=== PATIENT | male | born 1975 | race Caucasian/White ===

== ENCOUNTER 2016-08-20 09:54 | Emergency (ER) | payer MEDICARE, MEDICAID ==
[~2016-08-20 09:54] MED LIST: /GLIM4TA OR; /TAMS4CA OR; ALLO300T OR; AMBI10TA OR; BABY81CH OR; CIPR500T4 OR; COLA100C2 OR; DETR4CAP OR; FERR325T OR; FERR325T3 PO; FLOM5CAP PO; GLUC500T OR; HYDR25TA6 OR; INSULANT SC; JANU100T PO; JANU25TA PO; JANUVIA OR; KEFL500C7 PO; LISI10TA4 OR; LISI10TA4 PO; METF850T PO; OMEP20TA PO; OMEP20TA7 OR; PERC5TAB6 PO; POTASSIUM CITRATE1 PO; SENO8.6T10 PO; SODIUM BICARBONATE PO; TYLENOL #3 OR; VICO5TAB OR; ZOFR20TA PO
[2016-08-20 11:04] LABS: BASO # 0.1 K/mm3 (0.0-0.2); BASO % 0.5 % (0.0-1.0); EOS # 0.2 K/mm3 (0.0-0.50); EOS % 1.8 % (0.0-3.0); LARGE UNSTAINED CELL # 0.3 K/mm3 (0.0-0.4); LARGE UNSTAINED CELL % 2.8 % (0.0-4.0); LYMPH # 2.5 K/mm3 (1.5-4.5); MEAN CORPUSCULAR HEMOGLOBIN 26.7 pg (27.0-33.0); MEAN CORPUSCULAR HGB CONC 32.3 g/dl (32.0-36.5); MEAN CORPUSCULAR VOLUME 82.7 fl (80.0-96.0); MONO # 0.6 K/mm3 (0.0-0.8); NEUTROPHILS # 7.6 K/mm3 (1.8-7.7); NEUTROPHILS % 67.9 % (36.0-66.0); PLATELET COUNT, AUTOMATED 293 k/mm3 (150-450); RED CELL DISTRIBUTION WIDTH 14.7 % (11.5-14.5); WHITE BLOOD COUNT 11.2 K/mm3 (4.0-10.0)
[2016-08-20 11:13] LABS: ANION GAP 9 MEQ/L (8-16); BLOOD UREA NITROGEN 18 MG/DL (7-18); CALCIUM LEVEL 9.2 MG/DL (8.5-10.1); CARBON DIOXIDE LEVEL 29 MEQ/L (21-32); CHLORIDE LEVEL 102 MEQ/L (98-107); CREATININE FOR GFR 1.17 MG/DL (0.70-1.30); GLOMERULAR FILTRATION RATE > 60.0 (>60); GLUCOSE, FASTING 146 MG/DL (70-105); POTASSIUM SERUM 4.4 MEQ/L (3.5-5.1); SODIUM LEVEL 140 MEQ/L (136-145); URIC ACID 3.5 MG/DL (3.5-7.2)
--- NOTE | 2016-08-20 12:05 | EDDOCDS ---
Physician Documentation [facility] Name: Joe Prince Age: 41 yrs Sex: Male : 1975 Arrival Date: 08/20/2016 Time: 09:54 Bed PR Private MD: Jovany Gilbert E. Disposition: 08/20/16 11:48 Discharged to Home/Self Care. Impression: Cellulitis of right lower limb - anterior knee. - Condition is Stable. - Discharge Instructions: Cellulitis. - Prescriptions for Keflex 500 mg Oral Capsule - take 1 capsule by ORAL route every 6 hours for 10 days; 40 capsule. indomethacin 50 mg Oral Capsule - take 1 capsule by ORAL route 3 times per day with food; 15 capsule. - Medication Reconciliation, Local Pharmacy Hours form. - Follow up: Jovany Gilbert; When: 4 - 5 days; Reason: Recheck today's complaints. Follow up: Emergency Department; When: As needed; Reason: Fever > 102F, Worsening of conditions. - Problem is new. - Symptoms are unchanged. Historical: - Allergies: no known allergies; - Home Meds: 1. aspirin 81 mg Oral tab 1 tab once daily (Last dose: 08/20/2016 09:00) 2. Claritin 10 mg Oral tab once daily (Last dose: 08/20/2016 09:00) 3. ferrous sulfate 325 mg (65 mg iron) Oral TbEC daily (Last dose: 08/20/2016 09:00) 4. Lantus 100 unit/mL Sub-Q soln nightly 30 units (Last dose: 08/19/2016 23:00) 5. lisinopril 10 mg Oral tab 1 tab once daily (Last dose: 08/20/2016 09:00) 6. metformin 850 mg Oral tab 1 tab 2 times per day (Last dose: 08/20/2016 09:00) 7. Prilosec 20 mg Oral cpDR 1 cap 2 times per day (Last dose: 08/20/2016 09:00) 8. Vitamin B-12 1,000 mcg Oral tab daily (Last dose: 08/20/2016 09:00) 9. acetaminophen 650 mg Oral TbER 2 tabs every 8 hours arthritis strength (Last dose: 08/20/2016 09:00) - PMHx: Diabetes - IDDM: uncontrolled; GERD; Hypertension; Kidney stones; - PSHx: none; - Social history: Smoking status: Patient states was never smoker of tobacco. No barriers to communication noted, The patient speaks fluent Kittitian, Speaks appropriately for age. - Family history: Not pertinent. - : The pt / caregiver states he / she is not on anticoagulants. Home medication list is obtained from the patient. - Exposure Risk Screening:: None identified. Vital Signs: 08/20 09:55 BP 107 / 67; Pulse 91; Resp 18; Temp 97.3(O); Pulse Ox 99% on R/A; Weight 127.01 kg / ct3 280.01 lbs (R); Height 5 ft. 3 in. (160.02 cm) (R); Pain 10; 11:40 BP 116 / 66 RA Sitting (auto/reg); Pulse 78; Resp 18; Temp 97.4(T); Pulse Ox 98% on rs6 R/A; Pain 5/10; 09:55 Body Mass Index 49.60 (127.01 kg, 160.02 cm) ct3 MDM: 10:37 CBC with Diff Ordered. EDMS 10:37 MED Profile Ordered. EDMS 10:37 Uric Acid Ordered. EDMS 10:51 Financial registration complete. mm15 10:52 [facility] Payment Agreement was scanned into [email or web address] and attached to record. mm15 11:45 CBC with Diff Reviewed. ar2 11:45 MED Profile Reviewed. ar2 11:45 Uric Acid Reviewed. ar2 Signatures: Dispatcher [employer] EDMS Daquan Moore RN RN dwg Robertshaw, Aaron, PA-C PA-C ar2 Shalini Allen RN RN 1 Marycarmen Ortiz mm15 The chart was reviewed and I authenticate all verbal orders and agree with the evaluation and treatment provided.Attachments: 10:[address] [facility] Payment Agreement mm15 MTDD
--- NOTE | 2016-08-20 12:05 | EDDOCDS ---
Nurse's Notes [facility] Name: Joe Prince Age: 41 yrs Sex: Male : 1975 Arrival Date: 08/20/2016 Time: 09:54 Bed PR / Private MD: Jovany Gilbert E. Diagnosis: Cellulitis of right lower limb-anterior knee Presentation: 08/20 09:57 Presenting complaint: Patient states: right knee pain. Patient reports pain for 2 days. hs1 Pt feels like knee is swollen compared to left knee. Patient denies trauma and pain happened when he woke up. Pt reports that Tylenol arthritis not helping with pain. Adult Sepsis Screening: The patient does not have new or worsening altered mentation. Patient's respiratory rate is less than 22. Systolic blood pressure is greater than 100. Patient has a qSOFA score of 0- Negative Sepsis Screen. Suicide/Homicide risk assessment- the patient denies having any suicidal and/or homicidal ideations and does not present with any other emotional, behavioral or mental health complaints. Status: Patient is not a student support services director or dependent. Transition of care: patient was not received from another setting of care. 09:57 Acuity: MUNA Level 4 hs1 09:57 Method Of Arrival: Walkin/Carried/Asstd hs1 Triage Assessment: 10:01 General: Appears unkempt, Behavior is appropriate for age, cooperative. Pain: Location: hs1 right knee Pain currently is 10 out of 10 on a pain scale. Quality of pain is described as "when I bend my knee I feel like there is fluid in my knee". HIV screening NA for this visit Offered previously. Respiratory: Airway is patent Respiratory effort is even, unlabored. Derm: Skin is normal. Historical: - Allergies: no known allergies; - Home Meds: 1. aspirin 81 mg Oral tab 1 tab once daily (Last dose: 08/20/2016 09:00) 2. Claritin 10 mg Oral tab once daily (Last dose: 08/20/2016 09:00) 3. ferrous sulfate 325 mg (65 mg iron) Oral TbEC daily (Last dose: 08/20/2016 09:00) 4. Lantus 100 unit/mL Sub-Q soln nightly 30 units (Last dose: 08/19/2016 23:00) 5. lisinopril 10 mg Oral tab 1 tab once daily (Last dose: 08/20/2016 09:00) 6. metformin 850 mg Oral tab 1 tab 2 times per day (Last dose: 08/20/2016 09:00) 7. Prilosec 20 mg Oral cpDR 1 cap 2 times per day (Last dose: 08/20/2016 09:00) 8. Vitamin B-12 1,000 mcg Oral tab daily (Last dose: 08/20/2016 09:00) 9. acetaminophen 650 mg Oral TbER 2 tabs every 8 hours arthritis strength (Last dose: 08/20/2016 09:00) - PMHx: Diabetes - IDDM: uncontrolled; GERD; Hypertension; Kidney stones; - PSHx: none; - Social history: Smoking status: Patient states was never smoker of tobacco. No barriers to communication noted, The patient speaks fluent Yoruba, Speaks appropriately for age. - Family history: Not pertinent. - : The pt / caregiver states he / she is not on anticoagulants. Home medication list is obtained from the patient. - Exposure Risk Screening:: None identified. Screenin:03 Screening information is obtained from the patient. Fall risk: No risks identified. dwg Assistance ADL's: requires no assistance with activities of daily living. Abuse/DV Screen: The patient / caregiver reports he/she is: not in a situation that causes fear, pain or injury. Nutritional screening: No deficits noted. Advance Directives: Currently, there is no health care proxy. There is no active DNR order. There is no living will. There is no Power of Sales Vice President. Advance directive information has not previously been placed in an [facility] medical record. Further advance directive information is declined. home support is adequate. Assessment: 12:02 General: Appears in no apparent distress, Behavior is cooperative, pleasant. Pain: dwg Location: right knee Pain currently is 5 out of 10 on a pain scale. Neurological: Level of Consciousness is awake, alert, Oriented to person, place, time. Respiratory: Airway is patent is compromised Respiratory effort is even, unlabored, Respiratory pattern is regular, symmetrical. Musculoskeletal: Circulation, motion, and sensation intact Range of motion limited in right knee. Vital Signs: 09:55 BP 107 / 67; Pulse 91; Resp 18; Temp 97.3(O); Pulse Ox 99% on R/A; Weight 127.01 kg ct3 (R); Height 5 ft. 3 in. (160.02 cm) (R); Pain 10/10; 11:40 BP 116 / 66 RA Sitting (auto/reg); Pulse 78; Resp 18; Temp 97.4(T); Pulse Ox 98% on rs6 R/A; Pain 5/10; 09:55 Body Mass Index 49.60 (127.01 kg, 160.02 cm) ct3 Vitals: 09:55 Log In Time: August 20, 2016 at 09:52. ct3 ED Course: 09:55 Patient visited by Evangelina Sandoval PCA. ct3 09:55 Jovany Gilbert is Private Physician. ct3 09:55 Patient moved to Waiting ct3 09:56 Patient moved to Pre RCE ct3 09:59 Triage Initiated hs1 10:11 Patient moved to Triage 3 hs1 10:28 Milind Manley PA-C is PHCP. ar2 10:28 Dianelys Kovacs MD is Attending Physician. ar2 10:28 Patient visited by Milind Manley PA-C. ar2 10:49 Uric Acid Sent. rs6 10:49 MED Profile Sent. rs6 10:50 Patient moved to TR3 rs6 10:50 CBC with Diff Sent. rs6 10:52 [facility] Payment Agreement was scanned into [employer] and attached to record. mm15 11:31 Patient visited by Kim Jimenez RN. ms18 11:31 Patient moved to PR2 / 26 ms18 11:32 Patient moved to PR1 / 25 ms18 11:41 Patient visited by Soo Kingston PCA. rs6 11:48 Jovany Gilbert is Referral Physician. ar2 12:04 The patient / caregiver is instructed regarding the plan of care and ED course. dwg 12:04 No IV's were initiated during this patient's visit. No procedures done that require dwg assistance. Order Results: Lab Order: CBC with Diff; SPEC'M 08/20/16 10:48 Test: WHITE BLOOD COUNT; Value: 11.2; Range: 4.0-10.0; Abnormal: Above high normal; Units: K/mm3; Status: F Test: RED BLOOD COUNT; Value: 5.34; Range: 4.30-6.10; Units: M/mm3; Status: F Test: HEMOGLOBIN; Value: 14.3; Range: 14.0-18.0; Units: g/dl; Status: F Test: HEMATOCRIT; Value: 44.1; Range: 42.0-52.0; Units: %; Status: F Test: MEAN CORPUSCULAR VOLUME; Value: 82.7; Range: 80.0-96.0; Units: fl; Status: F Test: MEAN CORPUSCULAR HEMOGLOBIN; Value: 26.7; Range: 27.0-33.0; Abnormal: Below low normal; Units: pg; Status: F Test: MEAN CORPUSCULAR HGB CONC; Value: 32.3; Range: 32.0-36.5; Units: g/dl; Status: F Test: RED CELL DISTRIBUTION WIDTH; Value: 14.7; Range: 11.5-14.5; Abnormal: Above high normal; Units: %; Status: F Test: PLATELET COUNT, AUTOMATED; Value: 293; Range: 150-450; Units: k/mm3; Status: F Test: NEUTROPHILS %; Value: 67.9; Range: 36.0-66.0; Abnormal: Above high normal; Units: %; Status: F Test: LYMPH %; Value: 22.0; Range: 24.0-44.0; Abnormal: Below low normal; Units: %; Status: F Test: MONO %; Value: 5.0; Range: 0.0-5.0; Units: %; Status: F Test: EOS %; Value: 1.8; Range: 0.0-3.0; Units: %; Status: F Test: BASO %; Value: 0.5; Range: 0.0-1.0; Units: %; Status: F Test: LARGE UNSTAINED CELL %; Value: 2.8; Range: 0.0-4.0; Units: %; Status: F Test: NEUTROPHILS #; Value: 7.6; Range: 1.8-7.7; Units: K/mm3; Status: F Test: LYMPH #; Value: 2.5; Range: 1.5-4.5; Units: K/mm3; Status: F Test: MONO #; Value: 0.6; Range: 0.0-0.8; Units: K/mm3; Status: F Test: EOS #; Value: 0.2; Range: 0.0-0.50; Units: K/mm3; Status: F Test: BASO #; Value: 0.1; Range: 0.0-0.2; Units: K/mm3; Status: F Test: LARGE UNSTAINED CELL #; Value: 0.3; Range: 0.0-0.4; Units: K/mm3; Status: F Lab Order: MED Profile; SPEC'M 08/20/16 10:48 Test: GLUCOSE, FASTING; Value: 146; Range: 70-105; Abnormal: Above high normal; Units: MG/DL; Status: F Test: BLOOD UREA NITROGEN; Value: 18; Range: 7-18; Units: MG/DL; Status: F Test: CREATININE FOR GFR; Value: 1.17; Range: 0.70-1.30; Units: MG/DL; Status: F Test: GLOMERULAR FILTRATION RATE; Value: > 60.0; Range: >60; Status: F Test: SODIUM LEVEL; Value: 140; Range: 136-145; Units: MEQ/L; Status: F Test: POTASSIUM SERUM; Value: 4.4; Range: 3.5-5.1; Units: MEQ/L; Status: F Test: CHLORIDE LEVEL; Value: 102; Range: 98-107; Units: MEQ/L; Status: F Test: CARBON DIOXIDE LEVEL; Value: 29; Range: 21-32; Units: MEQ/L; Status: F Test: ANION GAP; Value: 9; Range: 8-16; Units: MEQ/L; Status: F Test: CALCIUM LEVEL; Value: 9.2; Range: 8.5-10.1; Units: MG/DL; Status: F Test Note: ; Units are mL/min/1.73 m2 Chronic Kidney Disease Staging per NKF: Stage I & II GFR >=60 Normal to Mildly Decreased Stage III GFR 30-59 Moderately Decreased Stage IV GFR 15-29 Severely Decreased Stage V GFR <15 Very Little GFR Left ESRD GFR <15 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 ar2 12:03 Discharge Assessment: Patient awake, alert and oriented x 3. No cognitive and/or dwg functional deficits noted. Patient verbalized understanding of disposition instructions. patient administered narcotics - no. The following High Risk Discharge criteria are identified: None. Discharged to home ambulatory, with family. Condition: good Condition: stable. No special radiology studies were completed. Property sent home with patient. 12:04 Patient left the ED. dwg Signatures: Daquan Moore RN RN dwg Milind Manley, PA-C PA-C ar2 Shalini Allen RN RN hs1 Evangelina Sandoval, SEARCH MARKETING COORDINATOR SEARCH MARKETING COORDINATOR ct3 Marycarmen Ortiz mm15 Kim Jimenez RN RN ms18 Soo Kingston, SEARCH MARKETING COORDINATOR SEARCH MARKETING COORDINATOR rs6 MTDNilda
--- NOTE | 2016-08-22 13:05 | EDDOCDS ---
Physician Documentation [facility] Name: Joe Prince Age: 41 yrs Sex: Male : 1975 Arrival Date: 08/20/2016 Time: 09:54 Bed PR Private MD: Jovany Gilbert E. Disposition: 08/20/16 11:48 Discharged to Home/Self Care. Impression: Cellulitis of right lower limb - anterior knee. - Condition is Stable. - Discharge Instructions: Cellulitis. - Prescriptions for Keflex 500 mg Oral Capsule - take 1 capsule by ORAL route every 6 hours for 10 days; 40 capsule. indomethacin 50 mg Oral Capsule - take 1 capsule by ORAL route 3 times per day with food; 15 capsule. - Medication Reconciliation, Local Pharmacy Hours form. - Follow up: Jovany Gilbert; When: 4 - 5 days; Reason: Recheck today's complaints. Follow up: Emergency Department; When: As needed; Reason: Fever > 102F, Worsening of conditions. - Problem is new. - Symptoms are unchanged. Historical: - Allergies: no known allergies; - Home Meds: 1. aspirin 81 mg Oral tab 1 tab once daily (Last dose: 08/20/2016 09:00) 2. Claritin 10 mg Oral tab once daily (Last dose: 08/20/2016 09:00) 3. ferrous sulfate 325 mg (65 mg iron) Oral TbEC daily (Last dose: 08/20/2016 09:00) 4. Lantus 100 unit/mL Sub-Q soln nightly 30 units (Last dose: 08/19/2016 23:00) 5. lisinopril 10 mg Oral tab 1 tab once daily (Last dose: 08/20/2016 09:00) 6. metformin 850 mg Oral tab 1 tab 2 times per day (Last dose: 08/20/2016 09:00) 7. Prilosec 20 mg Oral cpDR 1 cap 2 times per day (Last dose: 08/20/2016 09:00) 8. Vitamin B-12 1,000 mcg Oral tab daily (Last dose: 08/20/2016 09:00) 9. acetaminophen 650 mg Oral TbER 2 tabs every 8 hours arthritis strength (Last dose: 08/20/2016 09:00) - PMHx: Diabetes - IDDM: uncontrolled; GERD; Hypertension; Kidney stones; - PSHx: none; - Social history: Smoking status: Patient states was never smoker of tobacco. No barriers to communication noted, The patient speaks fluent Croatian, Speaks appropriately for age. - Family history: Not pertinent. - : The pt / caregiver states he / she is not on anticoagulants. Home medication list is obtained from the patient. - Exposure Risk Screening:: None identified. Vital Signs: 08/20 09:55 BP 107 / 67; Pulse 91; Resp 18; Temp 97.3(O); Pulse Ox 99% on R/A; Weight 127.01 kg / ct3 280.01 lbs (R); Height 5 ft. 3 in. (160.02 cm) (R); Pain 10; 11:40 BP 116 / 66 RA Sitting (auto/reg); Pulse 78; Resp 18; Temp 97.4(T); Pulse Ox 98% on rs6 R/A; Pain 5/10; 09:55 Body Mass Index 49.60 (127.01 kg, 160.02 cm) ct3 MDM: 10:37 CBC with Diff Ordered. EDMS 10:37 MED Profile Ordered. EDMS 10:37 Uric Acid Ordered. EDMS 10:51 Financial registration complete. mm15 10:52 [facility] Payment Agreement was scanned into [employer] and attached to record. mm15 11:45 CBC with Diff Reviewed. ar2 11:45 MED Profile Reviewed. ar2 11:45 Uric Acid Reviewed. ar2 14:47 T-Sheet-- Draft Copy was scanned into [employer] and attached to record. gb Signatures: Dispatcher [employer] EDMS Daquan Moore RN RN dw Ayana Drake, Reg Reg gb Milind Manley PA-C PAClark ar2 Shalini Allen RN RN 1 Marycarmen Ortiz mm15 The chart was reviewed and I authenticate all verbal orders and agree with the evaluation and treatment provided.Attachments: 10:52 [facility] Payment Agreement mm15 14:47 T-Sheet-- Draft Copy gb Chart Complete MTDD
--- NOTE | 2016-08-22 13:05 | EDDOCDS ---
Physician Documentation [facility] Name: Joe Prince Age: 41 yrs Sex: Male : 1975 Arrival Date: 08/20/2016 Time: 09:54 Bed PR Private MD: Jovany Gilbert E. Disposition: 08/20/16 11:48 Discharged to Home/Self Care. Impression: Cellulitis of right lower limb - anterior knee. - Condition is Stable. - Discharge Instructions: Cellulitis. - Prescriptions for Keflex 500 mg Oral Capsule - take 1 capsule by ORAL route every 6 hours for 10 days; 40 capsule. indomethacin 50 mg Oral Capsule - take 1 capsule by ORAL route 3 times per day with food; 15 capsule. - Medication Reconciliation, Local Pharmacy Hours form. - Follow up: Jovany Gilbert; When: 4 - 5 days; Reason: Recheck today's complaints. Follow up: Emergency Department; When: As needed; Reason: Fever > 102F, Worsening of conditions. - Problem is new. - Symptoms are unchanged. Historical: - Allergies: no known allergies; - Home Meds: 1. aspirin 81 mg Oral tab 1 tab once daily (Last dose: 08/20/2016 09:00) 2. Claritin 10 mg Oral tab once daily (Last dose: 08/20/2016 09:00) 3. ferrous sulfate 325 mg (65 mg iron) Oral TbEC daily (Last dose: 08/20/2016 09:00) 4. Lantus 100 unit/mL Sub-Q soln nightly 30 units (Last dose: 08/19/2016 23:00) 5. lisinopril 10 mg Oral tab 1 tab once daily (Last dose: 08/20/2016 09:00) 6. metformin 850 mg Oral tab 1 tab 2 times per day (Last dose: 08/20/2016 09:00) 7. Prilosec 20 mg Oral cpDR 1 cap 2 times per day (Last dose: 08/20/2016 09:00) 8. Vitamin B-12 1,000 mcg Oral tab daily (Last dose: 08/20/2016 09:00) 9. acetaminophen 650 mg Oral TbER 2 tabs every 8 hours arthritis strength (Last dose: 08/20/2016 09:00) - PMHx: Diabetes - IDDM: uncontrolled; GERD; Hypertension; Kidney stones; - PSHx: none; - Social history: Smoking status: Patient states was never smoker of tobacco. No barriers to communication noted, The patient speaks fluent Argentine, Speaks appropriately for age. - Family history: Not pertinent. - : The pt / caregiver states he / she is not on anticoagulants. Home medication list is obtained from the patient. - Exposure Risk Screening:: None identified. Vital Signs: 08/20 09:55 BP 107 / 67; Pulse 91; Resp 18; Temp 97.3(O); Pulse Ox 99% on R/A; Weight 127.01 kg / ct3 280.01 lbs (R); Height 5 ft. 3 in. (160.02 cm) (R); Pain 10; 11:40 BP 116 / 66 RA Sitting (auto/reg); Pulse 78; Resp 18; Temp 97.4(T); Pulse Ox 98% on rs6 R/A; Pain 5/10; 09:55 Body Mass Index 49.60 (127.01 kg, 160.02 cm) ct3 MDM: 10:37 CBC with Diff Ordered. EDMS 10:37 MED Profile Ordered. EDMS 10:37 Uric Acid Ordered. EDMS 10:51 Financial registration complete. mm15 10:52 [facility] Payment Agreement was scanned into [employer] and attached to record. mm15 11:45 CBC with Diff Reviewed. ar2 11:45 MED Profile Reviewed. ar2 11:45 Uric Acid Reviewed. ar2 14:47 T-Sheet-- Draft Copy was scanned into [employer] and attached to record. gb Signatures: Dispatcher [employer] EDMS Daquan Moore RN RN dw Ayana Drake, Reg Reg gb Milind Manley PA-C PAClark ar2 Shalini Allen RN RN 1 Marycarmen Ortiz mm15 The chart was reviewed and I authenticate all verbal orders and agree with the evaluation and treatment provided.Attachments: 10:52 [facility] Payment Agreement mm15 14:47 T-Sheet-- Draft Copy gb Chart Complete MTDD
--- NOTE | 2016-08-22 13:05 | EDDOCDS ---
Nurse's Notes [facility] Name: Joe Prince Age: 41 yrs Sex: Male : 1975 Arrival Date: 08/20/2016 Time: 09:54 Bed PR / Private MD: Jovany Gilbert E. Diagnosis: Cellulitis of right lower limb-anterior knee Presentation: 08/20 09:57 Presenting complaint: Patient states: right knee pain. Patient reports pain for 2 days. hs1 Pt feels like knee is swollen compared to left knee. Patient denies trauma and pain happened when he woke up. Pt reports that Tylenol arthritis not helping with pain. Adult Sepsis Screening: The patient does not have new or worsening altered mentation. Patient's respiratory rate is less than 22. Systolic blood pressure is greater than 100. Patient has a qSOFA score of 0- Negative Sepsis Screen. Suicide/Homicide risk assessment- the patient denies having any suicidal and/or homicidal ideations and does not present with any other emotional, behavioral or mental health complaints. Status: Patient is not a service specialist or dependent. Transition of care: patient was not received from another setting of care. 09:57 Acuity: MUNA Level 4 hs1 09:57 Method Of Arrival: Walkin/Carried/Asstd hs1 Triage Assessment: 10:01 General: Appears unkempt, Behavior is appropriate for age, cooperative. Pain: Location: hs1 right knee Pain currently is 10 out of 10 on a pain scale. Quality of pain is described as "when I bend my knee I feel like there is fluid in my knee". HIV screening NA for this visit Offered previously. Respiratory: Airway is patent Respiratory effort is even, unlabored. Derm: Skin is normal. Historical: - Allergies: no known allergies; - Home Meds: 1. aspirin 81 mg Oral tab 1 tab once daily (Last dose: 08/20/2016 09:00) 2. Claritin 10 mg Oral tab once daily (Last dose: 08/20/2016 09:00) 3. ferrous sulfate 325 mg (65 mg iron) Oral TbEC daily (Last dose: 08/20/2016 09:00) 4. Lantus 100 unit/mL Sub-Q soln nightly 30 units (Last dose: 08/19/2016 23:00) 5. lisinopril 10 mg Oral tab 1 tab once daily (Last dose: 08/20/2016 09:00) 6. metformin 850 mg Oral tab 1 tab 2 times per day (Last dose: 08/20/2016 09:00) 7. Prilosec 20 mg Oral cpDR 1 cap 2 times per day (Last dose: 08/20/2016 09:00) 8. Vitamin B-12 1,000 mcg Oral tab daily (Last dose: 08/20/2016 09:00) 9. acetaminophen 650 mg Oral TbER 2 tabs every 8 hours arthritis strength (Last dose: 08/20/2016 09:00) - PMHx: Diabetes - IDDM: uncontrolled; GERD; Hypertension; Kidney stones; - PSHx: none; - Social history: Smoking status: Patient states was never smoker of tobacco. No barriers to communication noted, The patient speaks fluent Slovak, Speaks appropriately for age. - Family history: Not pertinent. - : The pt / caregiver states he / she is not on anticoagulants. Home medication list is obtained from the patient. - Exposure Risk Screening:: None identified. Screenin:03 Screening information is obtained from the patient. Fall risk: No risks identified. dwg Assistance ADL's: requires no assistance with activities of daily living. Abuse/DV Screen: The patient / caregiver reports he/she is: not in a situation that causes fear, pain or injury. Nutritional screening: No deficits noted. Advance Directives: Currently, there is no health care proxy. There is no active DNR order. There is no living will. There is no Power of Computer Engineering Technician. Advance directive information has not previously been placed in an [facility] medical record. Further advance directive information is declined. home support is adequate. Assessment: 12:02 General: Appears in no apparent distress, Behavior is cooperative, pleasant. Pain: dwg Location: right knee Pain currently is 5 out of 10 on a pain scale. Neurological: Level of Consciousness is awake, alert, Oriented to person, place, time. Respiratory: Airway is patent is compromised Respiratory effort is even, unlabored, Respiratory pattern is regular, symmetrical. Musculoskeletal: Circulation, motion, and sensation intact Range of motion limited in right knee. Vital Signs: 09:55 BP 107 / 67; Pulse 91; Resp 18; Temp 97.3(O); Pulse Ox 99% on R/A; Weight 127.01 kg ct3 (R); Height 5 ft. 3 in. (160.02 cm) (R); Pain 10/10; 11:40 BP 116 / 66 RA Sitting (auto/reg); Pulse 78; Resp 18; Temp 97.4(T); Pulse Ox 98% on rs6 R/A; Pain 5/10; 09:55 Body Mass Index 49.60 (127.01 kg, 160.02 cm) ct3 Vitals: 09:55 Log In Time: August 20, 2016 at 09:52. ct3 ED Course: 09:55 Patient visited by Evangelina Sandoval PCA. ct3 09:55 Jovany Gilbert is Private Physician. ct3 09:55 Patient moved to Waiting ct3 09:56 Patient moved to Pre RCE ct3 09:59 Triage Initiated hs1 10:11 Patient moved to Triage 3 hs1 10:28 Milind Manley PA-C is PHCP. ar2 10:28 Dianelys Kovacs MD is Attending Physician. ar2 10:28 Patient visited by Milind Manley PA-C. ar2 10:49 Uric Acid Sent. rs6 10:49 MED Profile Sent. rs6 10:50 Patient moved to TR3 rs6 10:50 CBC with Diff Sent. rs6 10:52 [facility] Payment Agreement was scanned into [employer] and attached to record. mm15 11:31 Patient visited by Kim Jimenez RN. ms18 11:31 Patient moved to PR2 / 26 ms18 11:32 Patient moved to PR1 / 25 ms18 11:41 Patient visited by Soo Kingston PCA. rs6 11:48 Jovany Gilbert is Referral Physician. ar2 12:04 The patient / caregiver is instructed regarding the plan of care and ED course. dwg 12:04 No IV's were initiated during this patient's visit. No procedures done that require dwg assistance. 14:47 T-Sheet-- Draft Copy was scanned into [employer] and attached to record. gb Order Results: Lab Order: CBC with Diff; SPEC'M 08/20/16 10:48 Test: WHITE BLOOD COUNT; Value: 11.2; Range: 4.0-10.0; Abnormal: Above high normal; Units: K/mm3; Status: F Test: RED BLOOD COUNT; Value: 5.34; Range: 4.30-6.10; Units: M/mm3; Status: F Test: HEMOGLOBIN; Value: 14.3; Range: 14.0-18.0; Units: g/dl; Status: F Test: HEMATOCRIT; Value: 44.1; Range: 42.0-52.0; Units: %; Status: F Test: MEAN CORPUSCULAR VOLUME; Value: 82.7; Range: 80.0-96.0; Units: fl; Status: F Test: MEAN CORPUSCULAR HEMOGLOBIN; Value: 26.7; Range: 27.0-33.0; Abnormal: Below low normal; Units: pg; Status: F Test: MEAN CORPUSCULAR HGB CONC; Value: 32.3; Range: 32.0-36.5; Units: g/dl; Status: F Test: RED CELL DISTRIBUTION WIDTH; Value: 14.7; Range: 11.5-14.5; Abnormal: Above high normal; Units: %; Status: F Test: PLATELET COUNT, AUTOMATED; Value: 293; Range: 150-450; Units: k/mm3; Status: F Test: NEUTROPHILS %; Value: 67.9; Range: 36.0-66.0; Abnormal: Above high normal; Units: %; Status: F Test: LYMPH %; Value: 22.0; Range: 24.0-44.0; Abnormal: Below low normal; Units: %; Status: F Test: MONO %; Value: 5.0; Range: 0.0-5.0; Units: %; Status: F Test: EOS %; Value: 1.8; Range: 0.0-3.0; Units: %; Status: F Test: BASO %; Value: 0.5; Range: 0.0-1.0; Units: %; Status: F Test: LARGE UNSTAINED CELL %; Value: 2.8; Range: 0.0-4.0; Units: %; Status: F Test: NEUTROPHILS #; Value: 7.6; Range: 1.8-7.7; Units: K/mm3; Status: F Test: LYMPH #; Value: 2.5; Range: 1.5-4.5; Units: K/mm3; Status: F Test: MONO #; Value: 0.6; Range: 0.0-0.8; Units: K/mm3; Status: F Test: EOS #; Value: 0.2; Range: 0.0-0.50; Units: K/mm3; Status: F Test: BASO #; Value: 0.1; Range: 0.0-0.2; Units: K/mm3; Status: F Test: LARGE UNSTAINED CELL #; Value: 0.3; Range: 0.0-0.4; Units: K/mm3; Status: F Lab Order: MED Profile; SPEC'M 08/20/16 10:48 Test: GLUCOSE, FASTING; Value: 146; Range: 70-105; Abnormal: Above high normal; Units: MG/DL; Status: F Test: BLOOD UREA NITROGEN; Value: 18; Range: 7-18; Units: MG/DL; Status: F Test: CREATININE FOR GFR; Value: 1.17; Range: 0.70-1.30; Units: MG/DL; Status: F Test: GLOMERULAR FILTRATION RATE; Value: > 60.0; Range: >60; Status: F Test: SODIUM LEVEL; Value: 140; Range: 136-145; Units: MEQ/L; Status: F Test: POTASSIUM SERUM; Value: 4.4; Range: 3.5-5.1; Units: MEQ/L; Status: F Test: CHLORIDE LEVEL; Value: 102; Range: 98-107; Units: MEQ/L; Status: F Test: CARBON DIOXIDE LEVEL; Value: 29; Range: 21-32; Units: MEQ/L; Status: F Test: ANION GAP; Value: 9; Range: 8-16; Units: MEQ/L; Status: F Test: CALCIUM LEVEL; Value: 9.2; Range: 8.5-10.1; Units: MG/DL; Status: F Test Note: ; Units are mL/min/1.73 m2 Chronic Kidney Disease Staging per NKF: Stage I & II GFR >=60 Normal to Mildly Decreased Stage III GFR 30-59 Moderately Decreased Stage IV GFR 15-29 Severely Decreased Stage V GFR <15 Very Little GFR Left ESRD GFR <15 on MODEL BUILDER Lab Order: Uric Acid; SPEC'M 08/20/16 10:48 Test: URIC ACID; Value: 3.5; Range: 3.5-7.2; Units: MG/DL; Status: F Outcome: 11:48 Discharge ordered by Provider. ar2 12:03 Discharge Assessment: Patient awake, alert and oriented x 3. No cognitive and/or dwg functional deficits noted. Patient verbalized understanding of disposition instructions. patient administered narcotics - no. The following High Risk Discharge criteria are identified: None. Discharged to home ambulatory, with family. Condition: good Condition: stable. No special radiology studies were completed. Property sent home with patient. 12:04 Patient left the ED. dwg Signatures: Daquan Moore, RN RN dwg Ayana Drake, Reg Reg gb Milind Manley, VANE PA-Keisha ar2 Shalini Allen RN RN hs1 Evangelina Sandoval, RELATIONS SPECIALIST RELATIONS SPECIALIST ct3 Marycarmen Ortiz mm15 Kim Jimenez RN RN ms18 Soo Kingston, RELATIONS SPECIALIST RELATIONS SPECIALIST rs6 Chart Complete MTDD
== END 2016-08-20 12:04 | disposition home or self-care (01) ==
LOC: M ED 09:54
DX: L03.115 Cellulitis of right lower limb (principal); E11.65 Type 2 diabetes mellitus with hyperglycemia; K21.9 Gastro-esophageal reflux disease without esophagitis; I10 Essential (primary) hypertension; Z87.442 Personal history of urinary calculi; Z79.82 Long term (current) use of aspirin; Z79.84 Long term (current) use of oral hypoglycemic drugs; Z79.899 Other long term (current) drug therapy; Z79.1 Long term (current) use of non-steroidal anti-inflammatories (NSAID)

== ENCOUNTER → 2016-09-11 | Outpatient (CLI) | payer MEDICARE, MEDICAID ==
--- NOTE | 2016-09-11 09:44 | REP ---
CT abdomen and pelvis without IV or oral contrast: Renal stone protocol. History: Kidney stones. Comparison study December 27, 2015. Findings: Digital solution developer views are unremarkable. The lung bases are clear on axial CT slices. The liver shows evidence of mild diffuse fatty infiltration. Opaque gallstones are seen in the dependent portion of the gallbladder consistent with cholelithiasis. No focal splenic lesion is seen. A lobulated fat containing right adrenal mass is again seen consistent with myelolipoma. This is unchanged in size measuring 7-8 cm in greatest diameter. Left adrenal gland is unremarkable. No pancreatic lesion is seen. There is a descending duodenal diverticulum. There are scattered diverticula affecting the transverse colon. No CT evidence of diverticulitis is seen. Normal appendix is seen. No small bowel abnormality is noted. No retroperitoneal mass or adenopathy is seen. Urinary bladder, seminal vesicles and prostate are unremarkable. No abdominal wall defect is seen. Bilateral intrarenal nephrolithiasis is again seen. A low-density lower pole cyst is seen in the left kidney 5.2 cm in diameter unchanged from multiple prior exams. There is a calculus in the lower pole of the left kidney adjacent to the inferior margin of the cyst. This calculus measures 8 mm in diameter. No other intrarenal calculus is noted on the left. No hydronephrosis or ureteral stone is seen on the left. On the right, there is a large calculus in the renal pelvis. This measures 12 mm in greatest diameter. It was located at the corticomedullary junction on the prior study. There is a second calculus in the right kidney lower pole collecting system on the right measuring 8 mm in greatest diameter. No hydronephrosis is seen. No ureteral stone is observed. No bladder calculus is seen. Impression: 1. Bilateral intrarenal nephrolithiasis. The 12 mm renal pelvic stone is seen on the right with an 8 mm stone in the lower pole. On the left, there is an 8 mm stone at the lower pole. A left renal cyst is again seen. No hydronephrosis noted. 2. Cholelithiasis. 3. 7 to 8 cm stable right adrenal myelolipoma. 4. Scattered diverticulosis of the colon. Signed by Silvestre Rizzo MD 09/11/2016 10:31 A
== END ==
LOC: M RAD 08:52
PROVIDERS: ATTEND Urology
DX: N20.0 Calculus of kidney (principal); N28.1 Cyst of kidney, acquired; K80.20 Calculus of gallbladder without cholecystitis without obstruction; E27.8 Other specified disorders of adrenal gland; K57.30 Diverticulosis of large intestine without perforation or abscess without bleeding

== ENCOUNTER → 2016-10-18 | Outpatient (REF) | payer MEDICARE, MEDICAID ==
[~2016-10-18] MED LIST changes: +ASPI1TAB PO; +CITA20TA4 PO; +SLEE1TAB PO; +TYLE325C PO
[2016-10-18 14:16] LABS: BASO % 0.5 % (0.0-1.0); EOS # 0.1 K/mm3 (0.0-0.50); EOS % 1.4 % (0.0-3.0); LARGE UNSTAINED CELL # 0.4 K/mm3 (0.0-0.4); LARGE UNSTAINED CELL % 3.9 % (0.0-4.0); LYMPH # 2.5 K/mm3 (1.5-4.5); LYMPH % 25.6 % (24.0-44.0); MEAN CORPUSCULAR HEMOGLOBIN 26.2 pg (27.0-33.0); MEAN CORPUSCULAR HGB CONC 31.5 g/dl (32.0-36.5); MEAN CORPUSCULAR VOLUME 83.2 fl (80.0-96.0); MONO # 0.5 K/mm3 (0.0-0.8); MONO % 4.8 % (0.0-5.0); NEUTROPHILS # 6.1 K/mm3 (1.8-7.7); NEUTROPHILS % 63.8 % (36.0-66.0); PLATELET COUNT, AUTOMATED 317 k/mm3 (150-450); RED CELL DISTRIBUTION WIDTH 15.1 % (11.5-14.5); WHITE BLOOD COUNT 9.6 K/mm3 (4.0-10.0)
[2016-10-18 14:34] LABS: ALBUMIN 3.9 GM/DL (3.2-5.2); ALKALINE PHOSPHATASE 79 U/L (45-117); ALT/SGPT 24 U/L (12-78); ANION GAP 8 MEQ/L (8-16); AST/SGOT 14 U/L (15-37); BILIRUBIN,TOTAL 0.3 MG/DL (0.2-1.0); BLOOD UREA NITROGEN 16 MG/DL (7-18); CALCIUM LEVEL 8.9 MG/DL (8.5-10.1); CARBON DIOXIDE LEVEL 28 MEQ/L (21-32); CHLORIDE LEVEL 104 MEQ/L (98-107); CREATININE FOR GFR 0.95 MG/DL (0.70-1.30); FERRITIN 41 NG/ML (26-388); FREE T4 1.27 NG/DL (0.76-1.46); GLOMERULAR FILTRATION RATE > 60.0 (>60); GLUCOSE, FASTING 89 MG/DL (70-105); PERCENT SATURATION 14.6 % (19.7-37.4); POTASSIUM SERUM 4.4 MEQ/L (3.5-5.1); SODIUM LEVEL 140 MEQ/L (136-145); TOTAL IRON BINDING CAPACITY 287 UG/DL (250-450); TOTAL PROTEIN 6.9 GM/DL (6.4-8.2)
== END ==
LOC: M SFHCPLAZ 11:05
PROVIDERS: ATTEND Family Medicine
DX: D50.9 Iron deficiency anemia, unspecified (principal); E55.9 Vitamin D deficiency, unspecified; E78.5 Hyperlipidemia, unspecified; E11.9 Type 2 diabetes mellitus without complications
CPT/HCPCS: 36415; 80053; 82306; 82728; 83036; 83550; 83970; 84439; 84443; 85025; G0463

== ENCOUNTER → 2016-11-05 | Outpatient (REF) | payer MEDICARE, MEDICAID | LOC: M SMT 15:24 | PROVIDERS: ATTEND Urology | DX: N20.0 Calculus of kidney (principal); Z01.818 Encounter for other preprocedural examination ==

== ENCOUNTER → 2016-11-06 | Day surgery (SDC) | payer MEDICARE, MEDICAID ==
[~2016-11-06] VITALS: Ht 160 cm; Wt 116.6 kg
[~2016-11-06] MED LIST changes: +CONRAY-60 60% 50ML VIAL (Q9961) As Ordered ONE; +DESFLURANE 240 ML INHALANT As Ordered ONE; +GLYCOPYRROLATE INJ 0.2 MG/ML 2 ML VIAL As Ordered ONE; +LIDOCAINE 2% INJ 100 MG/5 ML SDV (FOR ANES.) As Ordered ONE; +LR 1,000 ML IV SCH; +METOCLOPRAMIDE INJ 10MG/2ML VIAL (J2765) As Ordered ONE; +MIDAZOLAM INJ 2 MG/2 ML VIAL (J2250) As Ordered ONE; +NEOSTIGMINE 1MG/ML 5 ML SYRINGE (J2710) As Ordered ONE; +ONDANSETRON 4MG/2ML VIAL (J2405) As Ordered ONE; +PERCOCET 5MG/325MG TAB PO PRN; +PROPOFOL 200 MG/20 ML VIAL As Ordered ONE; +ROCURONIUM BROMIDE 50 MG/5 ML VIAL As Ordered ONE; +fentaNYL 100 MCG/2 ML INJECTION (J3010) IV PRN; +fentaNYL 250 MCG/5 ML INJECTION (J3010) As Ordered ONE; +oxyBUTYnin 5 MG TAB PO PRN
--- NOTE | 2016-11-06 15:40 | REP ---
RETROGRADE PYELOGRAM: 11/06/2016. Clinical history: Renal stone disease. Four images from C-arm fluoroscopy provided to Dr. Boss of the urology division for retrograde pyelogram in conjunction with placement of bilateral internal ureteral stents. Catheter and wire in the left and then right ureter separately in the first and second images with contrast in the ureter and collecting systems. Third and fourth images show double pigtail stents coiled proximally in the renal pelvis and distally in the bladder on each side. Fluoroscopy time 22 seconds. Signed by Romero Larson MD 11/06/2016 05:13 P
[2016-11-06 18:16] VITALS: BP 147/84
--- NOTE | 2016-11-06 18:34 | RO ---
DATE OF PROCEDURE: 11/06/2016 PREPROCEDURE DIAGNOSIS: Bilateral kidney stones. POSTPROCEDURE DIAGNOSIS: Bilateral kidney stones. PROCEDURE: Cystoscopy, bilateral ureteroscopy with laser lithotripsy and basket extraction of stones, bilateral retrograde pyelogram with intraoperative interpretation of images, bilateral ureteral stent placement. SURGEON: Dr. Dustin Boss SALES SERVICE COORDINATOR: None. ANESTHESIA: General. OPERATIVE INDICATIONS: This is a 41-year-old male who was found to have bilateral kidney stones measuring up to approximately 1 cm on both sides. He was brought to the operating room today for the above listed procedure. DESCRIPTION OF PROCEDURE: The patient was brought to the operating room and general anesthesia was induced. Prophylactic antibiotics were infused. He was then placed in the dorsal lithotomy position and prepped and draped in the usual sterile fashion. A rigid cystoscope was then inserted into the urethral meatus and advanced into the bladder. Once within the bladder, a wire was advanced up the left collecting system. Over this wire a ureteral access sheath was advanced into the left collecting system. The cystoscope was them removed and a wire was secured to the drape to serve as a safety wire. I then went up the ureteral access sheath with a flexible ureteroscope. Within the left kidney, approximately 1 cm sized stone was seen in the lower pole calyx. The stone was repositioned to the upper pole calyx and then the stone was fragmented into several smaller pieces using a 200 micron laser fiber. Once that was done all of the fragments were removed using a stone basket. After confirming all the larger stone fragments had been removed the retrograde pyelogram was performed and was negative for extravasation. At this point, the ureteroscope and access sheath were removed and no stones were seen within the ureter. I then utilized the previously placed wire to advance a 5-Croatian x 22-32 cm JJ ureteral stent up into the right collecting system. The wire was then removed, and there were adequate curls of the stent in the right renal pelvis and in the bladder. I then advanced the wire up the right collecting system. The ureteral access sheath was then advanced over the wire up into the right collecting system. The wire was then secured to the drape to serve as a safety wire. I then went up the access sheath with a flexible ureteroscope. Within the right kidney, there were approximately 3 stones seen with the largest of these stones measuring about a cm in size. All of the stones were fragmented into smaller fragments using a 200 micron laser fiber. I then removed all of the larger fragments using a stone basket. Once I confirmed that all the larger fragments had been removed a retrograde pyelogram was performed and was negative for extravasation. I then removed the access sheath along with the ureteroscope and no stones were seen within the ureter. At this point the wire was utilized to advance a 5-Croatian x 22-32 cm JJ ureteral stent up into the right collecting system. The wire was then removed, and there were adequate coils of the stent in the right renal pelvis and in the bladder. At this point the bladder was then emptied of all fluids and this marked the conclusion of the procedure. The patient was then taken out of the dorsal lithotomy position, awakened from anesthesia and transported to the recovery room in stable condition. ESTIMATED BLOOD LOSS: 0 mL. COMPLICATIONS: None. SPECIMENS: Kidney stone fragments. PLAN: The patient will followup in the clinic in a week or two for stent removal. I will get a KUB prior to stent removal to confirm all of the stones have been removed. SALLY
== END | disposition home or self-care (01) ==
LOC: M SDC 08:05
PROVIDERS: ATTEND Urology
DX: N20.0 Calculus of kidney (principal); E10.9 Type 1 diabetes mellitus without complications; Z79.4 Long term (current) use of insulin; I10 Essential (primary) hypertension; E78.5 Hyperlipidemia, unspecified; G47.30 Sleep apnea, unspecified; K21.9 Gastro-esophageal reflux disease without esophagitis; E66.9 Obesity, unspecified; Z79.899 Other long term (current) drug therapy; Z79.82 Long term (current) use of aspirin
CPT/HCPCS: 52352; 52356; 74420; 82360; 88300; C1894; C2617; J0690; J2250; J2405; J2710; J2765; J3010; Q9961

== ENCOUNTER → 2016-11-15 | Outpatient (CLI) | payer MEDICARE, MEDICAID ==
[~2016-11-15] MED LIST changes: -CONRAY-60 60% 50ML VIAL (Q9961) As Ordered ONE; -DESFLURANE 240 ML INHALANT As Ordered ONE; -GLYCOPYRROLATE INJ 0.2 MG/ML 2 ML VIAL As Ordered ONE; -LIDOCAINE 2% INJ 100 MG/5 ML SDV (FOR ANES.) As Ordered ONE; -LR 1,000 ML IV SCH; -METOCLOPRAMIDE INJ 10MG/2ML VIAL (J2765) As Ordered ONE; -MIDAZOLAM INJ 2 MG/2 ML VIAL (J2250) As Ordered ONE; -NEOSTIGMINE 1MG/ML 5 ML SYRINGE (J2710) As Ordered ONE; -ONDANSETRON 4MG/2ML VIAL (J2405) As Ordered ONE; -PERCOCET 5MG/325MG TAB PO PRN; -PROPOFOL 200 MG/20 ML VIAL As Ordered ONE; -ROCURONIUM BROMIDE 50 MG/5 ML VIAL As Ordered ONE; -fentaNYL 100 MCG/2 ML INJECTION (J3010) IV PRN; -fentaNYL 250 MCG/5 ML INJECTION (J3010) As Ordered ONE; -oxyBUTYnin 5 MG TAB PO PRN
--- NOTE | 2016-11-15 15:43 | REP ---
KUB, ONE VIEW: HISTORY: Kidney stones. Bilateral ureteral stents are present. Two calcifications are present overlying the right kidney consistent with nephrolithiasis. There is no definite left nephrolithiasis. The intestinal gas pattern is nonspecific. IMPRESSION: 1. There are bilateral ureteral stents. 2. Right nephrolithiasis. Signed by Rosales Delgado MD 11/15/2016 03:49 P
== END ==
LOC: M SMT 14:35
PROVIDERS: ATTEND Urology
DX: N20.0 Calculus of kidney (principal)

== ENCOUNTER → 2017-02-21 | Outpatient (REF) | payer MEDICARE, MEDICAID ==
[~2017-02-21] MED LIST changes: +KEFL500C17 PO; -KEFL500C7 PO; -METF850T PO; +METF850T4 PO; +PERC5TAB12 PO; -PERC5TAB6 PO
[2017-02-21 15:55] LABS: ALBUMIN 3.7 GM/DL (3.2-5.2); ALBUMIN/GLOBULIN RATIO 1.06 (1.00-1.93); ALKALINE PHOSPHATASE 95 U/L (45-117); ALT/SGPT 24 U/L (12-78); ANION GAP 4 MEQ/L (8-16); AST/SGOT 10 U/L (15-37); BILIRUBIN,TOTAL 0.3 MG/DL (0.2-1.0); BLOOD UREA NITROGEN 18 MG/DL (7-18); CALCIUM LEVEL 8.8 MG/DL (8.5-10.1); CARBON DIOXIDE LEVEL 32 MEQ/L (21-32); CHLORIDE LEVEL 104 MEQ/L (98-107); CHOLESTEROL LEVEL 116 MG/DL (<200); CREATININE FOR GFR 1.02 MG/DL (0.70-1.30); GLOMERULAR FILTRATION RATE > 60.0 (>60); GLUCOSE, FASTING 89 MG/DL (70-105); MAGNESIUM LEVEL 1.7 MG/DL (1.8-2.4); POTASSIUM SERUM 4.2 MEQ/L (3.5-5.1); SODIUM LEVEL 140 MEQ/L (136-145); TOTAL PROTEIN 7.2 GM/DL (6.4-8.2); TRIGLYCERIDES LEVEL 88 MG/DL (<150); URIC ACID 3.9 MG/DL (3.5-7.2)
[2017-02-21 16:20] LABS: VITAMIN B12 LEVEL 1205 PG/ML (247-911)
[2017-02-25 09:50] LABS: PRETREATED FOLATE FOR RBCFOL 10.5 NG/ML
== END ==
LOC: M SFHCPLAZ 12:58
PROVIDERS: ATTEND Family Medicine
DX: I10 Essential (primary) hypertension (principal); E11.9 Type 2 diabetes mellitus without complications; E78.5 Hyperlipidemia, unspecified; E53.8 Deficiency of other specified B group vitamins
CPT/HCPCS: 36415; 80053; 80061; 81001; 82043; 82607; 82747; 83036; 83735; 84550; G0463

== ENCOUNTER → 2017-09-08 | Outpatient (CLI) | payer MEDICARE, MEDICAID | LOC: M SMT 13:11 | DX: N20.0 Calculus of kidney (principal) | CPT/HCPCS: 74018; G0463 ==

== ENCOUNTER → 2017-11-04 | Outpatient (REF) | payer MEDICARE, MEDICAID ==
[2017-11-04 13:57] LABS: BASO # 0.1 10^3/uL (0.0-0.2); BASO % 0.6 % (0.0-1.0); EOS # 0.3 10^3/uL (0.0-0.50); EOS % 2.6 % (0.0-3.0); HEMATOCRIT 40.8 % (42.0-52.0); HEMOGLOBIN 12.8 g/dl (14.0-18.0); LYMPH # 2.7 10^3/uL (1.5-4.5); LYMPH % 24.7 % (24.0-44.0); MEAN CORPUSCULAR HEMOGLOBIN 25.5 pg (27.0-33.0); MEAN CORPUSCULAR HGB CONC 31.4 g/dl (32.0-36.5); MEAN CORPUSCULAR VOLUME 81.3 fl (80.0-96.0); MONO # 0.6 10^3/uL (0.0-0.8); MONO % 5.4 % (0.0-5.0); NEUTROPHILS # 7.1 10^3/uL (1.8-7.7); NEUTROPHILS % 65.7 % (36.0-66.0); PLATELET COUNT, AUTOMATED 277 10^3/uL (150-450); RED BLOOD COUNT 5.02 10^6/uL (4.30-6.10); RED CELL DISTRIBUTION WIDTH 15.1 % (11.5-14.5); WHITE BLOOD COUNT 10.8 10^3/uL (4.0-10.0)
[2017-11-04 14:11] LABS: ESTIMATED AVERAGE GLUCOSE 157 MG/DL (60-110); HEMOGLOBIN A1c 7.1 %
[2017-11-04 14:13] LABS: ALBUMIN 3.7 GM/DL (3.2-5.2); ALBUMIN/GLOBULIN RATIO 0.95 (1.00-1.93); ALKALINE PHOSPHATASE 95 U/L (45-117); ALT/SGPT 28 U/L (12-78); ANION GAP 7 MEQ/L (8-16); AST/SGOT 15 U/L (7-37); BILIRUBIN,TOTAL 0.4 MG/DL (0.2-1.0); BLOOD UREA NITROGEN 18 MG/DL (7-18); CARBON DIOXIDE LEVEL 28 MEQ/L (21-32); CHLORIDE LEVEL 104 MEQ/L (98-107); CREATININE FOR GFR 1.05 MG/DL (0.70-1.30); FERRITIN 22 NG/ML (26-388); GLOMERULAR FILTRATION RATE > 60.0 (>60); GLUCOSE, FASTING 119 MG/DL (70-100); IRON (FE) 46 UG/DL (65-175); PERCENT SATURATION 15.2 % (19.7-50.0); POTASSIUM SERUM 4.7 MEQ/L (3.5-5.1); SODIUM LEVEL 139 MEQ/L (136-145); TOTAL IRON BINDING CAPACITY 302 UG/DL (250-450); TOTAL PROTEIN 7.6 GM/DL (6.4-8.2)
[2017-11-04 14:17] LABS: PTH INTACT 24.9 PG/ML (18.5-88.0); TOTAL 25(OH) VITAMIN D 36.8 NG/ML (30.0-100.0)
[2017-11-06 00:07] LABS: TISSUE TRANSGLUTAMINASE IgA <2 U/mL (0-3)
== END ==
LOC: M SFHCPLAZ 13:40
DX: D50.9 Iron deficiency anemia, unspecified (principal); E11.9 Type 2 diabetes mellitus without complications; E55.9 Vitamin D deficiency, unspecified
CPT/HCPCS: 83550

== ENCOUNTER → 2018-08-24 | Outpatient (REF) | payer MEDICARE, MEDICAID ==
[~2018-08-24] MED LIST changes: +FLOM0.4C39 PO; -FLOM5CAP PO; -ZOFR20TA PO; +ZOFR4TAB16 PO
[2018-08-24 15:51] LABS: BASO # 0.1 10^3/uL (0.0-0.2); BASO % 0.6 % (0.0-1.0); EOS # 0.4 10^3/uL (0.0-0.50); EOS % 2.6 % (0.0-3.0); HEMATOCRIT 46.4 % (42.0-52.0); HEMOGLOBIN 14.3 g/dl (13.5-17.5); LYMPH # 3.6 10^3/uL (1.5-4.5); LYMPH % 25.4 % (24.0-44.0); MEAN CORPUSCULAR HEMOGLOBIN 24.2 pg (27.0-33.0); MEAN CORPUSCULAR HGB CONC 30.8 g/dl (32.0-36.5); MEAN CORPUSCULAR VOLUME 78.5 fl (80.0-96.0); MONO # 0.9 10^3/uL (0.0-0.8); MONO % 6.7 % (0.0-5.0); NEUTROPHILS # 8.9 10^3/uL (1.8-7.7); NEUTROPHILS % 63.9 % (36.0-66.0); PLATELET COUNT, AUTOMATED 304 10^3/uL (150-450); RED BLOOD COUNT 5.91 10^6/uL (4.30-6.10)
[2018-08-24 15:55] LABS: ALBUMIN 3.6 GM/DL (3.2-5.2); ALT/SGPT 33 U/L (12-78); BILIRUBIN,TOTAL 0.3 MG/DL (0.2-1.0); BLOOD UREA NITROGEN 18 MG/DL (7-18); C REACTIVE PROTEIN QUANTITATIV 1.63 MG/DL (0.00-0.30); CALCIUM LEVEL 9.1 MG/DL (8.5-10.1); CARBON DIOXIDE LEVEL 29 MEQ/L (21-32); CHLORIDE LEVEL 102 MEQ/L (98-107); CHOLESTEROL LEVEL 129 MG/DL (<200); CHOLESTEROL RISK RATIO 4.607 (<5); CPK CREATINE PHOSPHOKINASE 85 U/L (39-308); CREATININE FOR GFR 1.05 MG/DL (0.70-1.30); GLOMERULAR FILTRATION RATE > 60.0 (>60); GLUCOSE, FASTING 185 MG/DL (70-100); HDL CHOLESTEROL 28 MG/DL (>40); LDL CHOLESTEROL 23 MG/DL (<100); NON-HDL-C 101 MG/DL; POTASSIUM SERUM 4.2 MEQ/L (3.5-5.1); SODIUM LEVEL 141 MEQ/L (136-145); TOTAL PROTEIN 7.4 GM/DL (6.4-8.2); TRIGLYCERIDES LEVEL 390 MG/DL (<150); URIC ACID 4.3 MG/DL (3.5-7.2)
[2018-08-24 16:02] LABS: VITAMIN B12 LEVEL 1403 PG/ML (247-911)
== END ==
LOC: M SFHCPLAZ 13:36
PROVIDERS: ATTEND Nurse Practitioner Family
DX: E78.5 Hyperlipidemia, unspecified (principal); D50.9 Iron deficiency anemia, unspecified; N20.0 Calculus of kidney; E11.9 Type 2 diabetes mellitus without complications
CPT/HCPCS: 36415; 80053; 80061; 82550; 82607; 83036; 84550; 85025; 85046; 86140; 90686; G0008

== ENCOUNTER → 2018-09-17 | Outpatient (CLI) | payer MEDICARE, MEDICAID ==
--- NOTE | 2018-09-17 10:17 | REP ---
KUB, ONE VIEW: HISTORY: Kidney stones. COMPARISON: 09/08/2017. A small amount of air is present small and large intestine. There are no air fluid levels or dilated loops of intestine. There is no pneumoperitoneum. A calcification is present overlying the left kidney consistent with nephrolithiasis. IMPRESSION: Left nephrolithiasis. Electronically Signed by Rosales Delgado MD 09/17/2018 10:18 A
== END ==
LOC: M SMT 09:27
PROVIDERS: ATTEND Urology
DX: N20.0 Calculus of kidney (principal)
CPT/HCPCS: 74018; G0463

== ENCOUNTER → 2019-01-28 | Outpatient (REF) | payer MEDICARE, MEDICAID ==
[~2019-01-28] MED LIST changes: -/GLIM4TA OR; -/TAMS4CA OR; +AMAR1TAB6 OR; -ASPI1TAB PO; +ASPI81TA26 PO; -CITA20TA4 PO; +CITA20TA6 PO; +FLOM0.4C39 OR
[2019-01-28 09:58] LABS: BASO # 0.1 10^3/uL (0.0-0.2); BASO % 0.8 % (0.0-1.0); EOS # 0.4 10^3/uL (0.0-0.50); EOS % 3.6 % (0.0-3.0); HEMATOCRIT 46.8 % (42.0-52.0); HEMOGLOBIN 14.2 g/dl (13.5-17.5); LYMPH # 3.2 10^3/uL (1.5-4.5); LYMPH % 29.9 % (24.0-44.0); MEAN CORPUSCULAR HEMOGLOBIN 25.1 pg (27.0-33.0); MEAN CORPUSCULAR HGB CONC 30.3 g/dl (32.0-36.5); MEAN CORPUSCULAR VOLUME 82.8 fl (80.0-96.0); MONO # 0.7 10^3/uL (0.0-0.8); MONO % 6.5 % (0.0-5.0); NEUTROPHILS # 6.2 10^3/uL (1.8-7.7); NEUTROPHILS % 58.4 % (36.0-66.0); PLATELET COUNT, AUTOMATED 251 10^3/uL (150-450); RED BLOOD COUNT 5.65 10^6/uL (4.30-6.10); WHITE BLOOD COUNT 10.6 10^3/uL (4.0-10.0)
[2019-01-28 10:15] LABS: HEMOGLOBIN A1c 7.7 %
[2019-01-28 10:31] LABS: ALBUMIN 3.5 GM/DL (3.2-5.2); ALT/SGPT 41 U/L (12-78); BILIRUBIN,TOTAL 0.3 MG/DL (0.2-1.0); BLOOD UREA NITROGEN 17 MG/DL (7-18); CALCIUM LEVEL 8.9 MG/DL (8.5-10.1); CARBON DIOXIDE LEVEL 29 MEQ/L (21-32); CHLORIDE LEVEL 107 MEQ/L (98-107); CREATININE FOR GFR 1.05 MG/DL (0.70-1.30); FREE T4 1.02 NG/DL (0.76-1.46); GLOMERULAR FILTRATION RATE > 60.0 (>60); GLUCOSE, FASTING 134 MG/DL (70-100); POTASSIUM SERUM 4.5 MEQ/L (3.5-5.1); PTH INTACT 64.7 PG/ML (18.5-88.0); SODIUM LEVEL 142 MEQ/L (136-145); TOTAL PROTEIN 7.2 GM/DL (6.4-8.2)
== END ==
LOC: M SFHCPLAZ 08:23
PROVIDERS: ATTEND Family Medicine
DX: E11.9 Type 2 diabetes mellitus without complications (principal); D50.9 Iron deficiency anemia, unspecified; E78.5 Hyperlipidemia, unspecified; N18.2 Chronic kidney disease, stage 2 (mild)

== ENCOUNTER → 2019-06-21 | Outpatient (REF) | payer MEDICARE, MEDICAID ==
[~2019-06-21] MED LIST changes: +OMEP-358 PO; -OMEP20TA PO
[2019-06-21 14:21] LABS: BASO # 0.1 10^3/uL (0.0-0.2); BASO % 0.5 % (0.0-1.0); EOS # 0.2 10^3/uL (0.0-0.5); EOS % 2.6 % (0.0-3.0); HEMATOCRIT 45.9 % (42.0-52.0); HEMOGLOBIN 14.2 g/dl (13.5-17.5); LYMPH # 2.3 10^3/uL (1.5-5.0); LYMPH % 25.2 % (24.0-44.0); MEAN CORPUSCULAR HEMOGLOBIN 25.3 pg (27.0-33.0); MEAN CORPUSCULAR HGB CONC 30.9 g/dl (32.0-36.5); MEAN CORPUSCULAR VOLUME 81.7 fl (80.0-96.0); MONO # 0.5 10^3/uL (0.0-0.8); NEUTROPHILS % 65.5 % (36.0-66.0); PLATELET COUNT, AUTOMATED 235 10^3/uL (150-450); RED BLOOD COUNT 5.62 10^6/uL (4.30-6.10); WHITE BLOOD COUNT 9.2 10^3/uL (4.0-10.0)
[2019-06-21 14:29] LABS: ALBUMIN 3.5 GM/DL (3.2-5.2); ALT/SGPT 61 U/L (12-78); BILIRUBIN,TOTAL 0.3 MG/DL (0.2-1.0); BLOOD UREA NITROGEN 14 MG/DL (7-18); CARBON DIOXIDE LEVEL 30 MEQ/L (21-32); CHLORIDE LEVEL 103 MEQ/L (98-107); CHOLESTEROL LEVEL 138 MG/DL (<200); CREATININE FOR GFR 0.88 MG/DL (0.70-1.30); GLOMERULAR FILTRATION RATE > 60.0 (>60); GLUCOSE, FASTING 222 MG/DL (70-100); HDL CHOLESTEROL 30 MG/DL (>40); LDL CHOLESTEROL 53 MG/DL (<100); MAGNESIUM LEVEL 1.6 MG/DL (1.8-2.4); NON-HDL-C 108 MG/DL; POTASSIUM SERUM 3.6 MEQ/L (3.5-5.1); SODIUM LEVEL 140 MEQ/L (136-145); TOTAL PROTEIN 7.1 GM/DL (6.4-8.2); TRIGLYCERIDES LEVEL 275 MG/DL (<150)
[2019-06-21 14:54] LABS: HEMOGLOBIN A1c 10.2 %
[2019-06-22 08:17] LABS: H PYLORI QUALITATIVE IgG NEGATIVE (NEGATIVE)
== END ==
LOC: M SFHCPLAZ 10:55
PROVIDERS: ATTEND Family Medicine
DX: E11.9 Type 2 diabetes mellitus without complications (principal)

== ENCOUNTER → 2019-11-29 | Outpatient (REF) | payer MEDICARE, MEDICAID ==
[2019-11-29 12:18] LABS: ALBUMIN 3.6 GM/DL (3.2-5.2); ALT/SGPT 37 U/L (12-78); BILIRUBIN,TOTAL 0.4 MG/DL (0.2-1.0); BLOOD UREA NITROGEN 13 MG/DL (7-18); CARBON DIOXIDE LEVEL 31 MEQ/L (21-32); CHLORIDE LEVEL 105 MEQ/L (98-107); CREATININE FOR GFR 0.99 MG/DL (0.70-1.30); GLOMERULAR FILTRATION RATE > 60.0 (>60); GLUCOSE, FASTING 177 MG/DL (70-100); POTASSIUM SERUM 4.4 MEQ/L (3.5-5.1); SODIUM LEVEL 139 MEQ/L (136-145); TOTAL PROTEIN 7.5 GM/DL (6.4-8.2)
[2019-11-29 12:23] LABS: BASO # 0.1 10^3/uL (0.0-0.2); BASO % 0.6 % (0.0-1.0); EOS # 0.3 10^3/uL (0.0-0.5); EOS % 2.6 % (0.0-3.0); HEMATOCRIT 48.5 % (42.0-52.0); HEMOGLOBIN 15.2 g/dl (13.5-17.5); LYMPH # 2.9 10^3/uL (1.5-5.0); LYMPH % 26.6 % (24.0-44.0); MEAN CORPUSCULAR HEMOGLOBIN 25.8 pg (27.0-33.0); MEAN CORPUSCULAR HGB CONC 31.3 g/dl (32.0-36.5); MEAN CORPUSCULAR VOLUME 82.2 fl (80.0-96.0); MONO # 0.6 10^3/uL (0.0-0.8); MONO % 5.7 % (0.0-5.0); NEUTROPHILS % 63.5 % (36.0-66.0); PLATELET COUNT, AUTOMATED 281 10^3/uL (150-450)
[2019-11-29 12:26] LABS: TOTAL 25(OH) VITAMIN D 30.3 NG/ML (30.0-100.0)
[2019-11-29 12:27] LABS: PTH INTACT 68.4 PG/ML (18.5-88.0); VITAMIN B12 LEVEL 1033 PG/ML (247-911)
[2019-11-29 13:59] LABS: HEMOGLOBIN A1c 8.5 %
== END ==
LOC: M SFHCPLAZ 10:34
PROVIDERS: ATTEND Family Medicine
DX: N20.0 Calculus of kidney (principal); E11.9 Type 2 diabetes mellitus without complications; E53.8 Deficiency of other specified B group vitamins; E55.9 Vitamin D deficiency, unspecified
CPT/HCPCS: 36415; 80053; 82306; 82607; 83036; 83970; 85025; G0463

== ENCOUNTER → 2020-04-13 | Outpatient (CLI) | payer MEDICARE, MEDICAID ==
[2020-04-13 13:29] LABS: BLOOD UREA NITROGEN 14 MG/DL (7-18); CALCIUM LEVEL 8.8 MG/DL (8.5-10.1); CARBON DIOXIDE LEVEL 31 MEQ/L (21-32); CHLORIDE LEVEL 106 MEQ/L (98-107); CREATININE FOR GFR 0.91 MG/DL (0.70-1.30); GLOMERULAR FILTRATION RATE > 60.0 (>60); GLUCOSE, FASTING 181 MG/DL (70-100); POTASSIUM SERUM 4.2 MEQ/L (3.5-5.1); SODIUM LEVEL 142 MEQ/L (136-145)
[2020-04-13 13:30] LABS: ALBUMIN 3.5 GM/DL (3.2-5.2); ALT/SGPT 36 U/L (12-78); BILIRUBIN,TOTAL 0.3 MG/DL (0.2-1.0); CHOLESTEROL LEVEL 148 MG/DL (<200); CHOLESTEROL RISK RATIO 4.625 (<5); FREE T4 1.15 NG/DL (0.76-1.46); HDL CHOLESTEROL 32 MG/DL (>40); LDL CHOLESTEROL 94 MG/DL (<100); NON-HDL-C 116 MG/DL; TOTAL PROTEIN 7.1 GM/DL (6.4-8.2); TRIGLYCERIDES LEVEL 112 MG/DL (<150); URIC ACID 4.3 MG/DL (3.5-7.2)
[2020-04-13 13:31] LABS: APPEARANCE, URINE HAZY (CLEAR); BACTERIA, URINE AUTO NEGATIVE (NEGATIVE); BILIRUBIN, URINE AUTO NEGATIVE (NEGATIVE); BLOOD, URINE BLOOD 2+ (NEGATIVE); COLOR, URINE YELLOW (YELLOW); GLUCOSE, URINE (UA) AUTO 1+ mg/dL (NEGATIVE); KETONE, URINE AUTO NEGATIVE (NEGATIVE); LEUKOCYTE ESTERASE, URINE AUTO TRACE (NEGATIVE); MUCUS, URINE SMALL (NEGATIVE); NITRITE, URINE AUTO NEGATIVE (NEGATIVE); PROTEIN, URINE AUTO 1+ mg/dL (NEGATIVE); RBC, URINE AUTO 3 /HPF (0-3); SPECIFIC GRAVITY URINE AUTO 1.021 (1.002-1.035); SQUAMOUS EPITHELIAL CELL UR AU 1 /HPF (0-6); UROBILINOGEN, URINE AUTO 0.2 mg/dL (0.0-2.0); WBC, URINE AUTO 9 /HPF (0-3)
[2020-04-13 14:34] LABS: MAU/CREAT RATIO 211.6 MCG/MG (0.0-30.0)
== END ==
LOC: M PLALAB 10:25
PROVIDERS: ATTEND Family Medicine
DX: E11.9 Type 2 diabetes mellitus without complications (principal); I10 Essential (primary) hypertension; D50.9 Iron deficiency anemia, unspecified
CPT/HCPCS: 36415; 80053; 80061; 81001; 82043; 83036; 84439; 84443; 84550; G0463

== ENCOUNTER → 2021-03-07 | Outpatient (CLI) | payer MEDICARE, MEDICAID ==
[~2021-03-07] MED LIST changes: +LISI10TA22 PO; -LISI10TA4 PO
[2021-03-07 10:22] LABS: BASO # 0.1 10^3/uL (0.0-0.2); BASO % 0.5 % (0.0-1.0); EOS # 0.3 10^3/uL (0.0-0.5); EOS % 2.7 % (0.0-3.0); HEMATOCRIT 44.5 % (42.0-52.0); HEMOGLOBIN 13.5 g/dl (13.5-17.5); LYMPH # 2.6 10^3/uL (1.5-5.0); LYMPH % 22.4 % (24.0-44.0); MEAN CORPUSCULAR HEMOGLOBIN 24.8 pg (27.0-33.0); MEAN CORPUSCULAR HGB CONC 30.3 g/dl (32.0-36.5); MEAN CORPUSCULAR VOLUME 81.7 fl (80.0-96.0); MONO # 0.6 10^3/uL (0.0-0.8); MONO % 5.4 % (2.0-8.0); NEUTROPHILS % 68.2 % (36.0-66.0); PLATELET COUNT, AUTOMATED 241 10^3/uL (150-450); RED BLOOD COUNT 5.45 10^6/uL (4.30-6.10); WHITE BLOOD COUNT 11.8 10^3/uL (4.0-10.0)
[2021-03-07 10:53] LABS: ALBUMIN 3.3 GM/DL (3.2-5.2); ALT/SGPT 40 U/L (12-78); BILIRUBIN,TOTAL 0.3 MG/DL (0.2-1.0); BLOOD UREA NITROGEN 16 MG/DL (7-18); CALCIUM LEVEL 8.6 MG/DL (8.5-10.1); CARBON DIOXIDE LEVEL 31 MEQ/L (21-32); CHLORIDE LEVEL 105 MEQ/L (98-107); CHOLESTEROL LEVEL 132 MG/DL (<200); CHOLESTEROL RISK RATIO 5.076 (<5); CREATININE FOR GFR 0.94 MG/DL (0.70-1.30); FERRITIN 40 NG/ML (26-388); FREE T4 0.99 NG/DL (0.76-1.46); GLOMERULAR FILTRATION RATE > 60.0 (>60); GLUCOSE, FASTING 201 MG/DL (70-100); HDL CHOLESTEROL 26 MG/DL (>40); LDL CHOLESTEROL 44 MG/DL (<100); NON-HDL-C 106 MG/DL; POTASSIUM SERUM 4.2 MEQ/L (3.5-5.1); PTH INTACT 36.3 PG/ML (18.5-88.0); SODIUM LEVEL 140 MEQ/L (136-145); TOTAL 25(OH) VITAMIN D 27.9 NG/ML (30.0-100.0); TOTAL PROTEIN 6.8 GM/DL (6.4-8.2); TRIGLYCERIDES LEVEL 311 MG/DL (<150)
[2021-03-07 10:54] LABS: VITAMIN B12 LEVEL 363 PG/ML (247-911)
[2021-03-07 11:20] LABS: HEMOGLOBIN A1c 9.3 %
== END ==
LOC: M PLALAB 08:48
PROVIDERS: ATTEND Family Medicine
DX: E53.8 Deficiency of other specified B group vitamins (principal); E55.9 Vitamin D deficiency, unspecified; E11.9 Type 2 diabetes mellitus without complications

== ENCOUNTER → 2021-12-18 | Outpatient (CLI) | payer MEDICARE, MEDICAID ==
[2021-12-18 15:16] LABS: BASO # 0.1 10^3/uL (0.0-0.2); BASO % 0.8 % (0.0-1.0); EOS # 0.3 10^3/uL (0.0-0.5); EOS % 2.6 % (0.0-3.0); HEMATOCRIT 47.9 % (42.0-52.0); HEMOGLOBIN 14.5 g/dl (13.5-17.5); LYMPH # 3.1 10^3/uL (1.5-5.0); LYMPH % 26.7 % (24.0-44.0); MEAN CORPUSCULAR HEMOGLOBIN 24.8 pg (27.0-33.0); MEAN CORPUSCULAR HGB CONC 30.3 g/dl (32.0-36.5); MEAN CORPUSCULAR VOLUME 81.9 fl (80.0-96.0); MONO # 0.7 10^3/uL (0.0-0.8); MONO % 5.7 % (2.0-8.0); NEUTROPHILS # 7.4 10^3/uL (1.5-8.5); NEUTROPHILS % 63.3 % (36.0-66.0); PLATELET COUNT, AUTOMATED 241 10^3/uL (150-450); RED BLOOD COUNT 5.85 10^6/uL (4.30-6.10); WHITE BLOOD COUNT 11.7 10^3/uL (4.0-10.0)
[2021-12-18 15:37] LABS: ALBUMIN 3.6 GM/DL (3.2-5.2); ALT/SGPT 29 U/L (12-78); BILIRUBIN,TOTAL 0.3 MG/DL (0.2-1.0); BLOOD UREA NITROGEN 14 MG/DL (7-18); CALCIUM LEVEL 9.7 MG/DL (8.5-10.1); CARBON DIOXIDE LEVEL 31 MEQ/L (21-32); CHLORIDE LEVEL 107 MEQ/L (98-107); CREATININE FOR GFR 0.94 MG/DL (0.70-1.30); FERRITIN 38 NG/ML (26-388); GLOMERULAR FILTRATION RATE > 60.0 (>60); GLUCOSE, FASTING 110 MG/DL (70-100); NT-PRO BNP 20 PG/ML (<125); POTASSIUM SERUM 4.3 MEQ/L (3.5-5.1); SODIUM LEVEL 144 MEQ/L (136-145); TOTAL PROTEIN 7.4 GM/DL (6.4-8.2)
[2021-12-18 15:38] LABS: HEMOGLOBIN A1c 7.7 %
[2021-12-18 17:51] LABS: VITAMIN B12 LEVEL 423 PG/ML (247-911)
== END ==
LOC: M PLALAB 13:56
PROVIDERS: ATTEND Family Medicine
DX: E11.9 Type 2 diabetes mellitus without complications (principal); I10 Essential (primary) hypertension

== ENCOUNTER → 2023-06-13 | Outpatient (REF) | payer MEDICARE, MEDICAID | LOC: M SFHCPLAZ 09:47 | PROVIDERS: ATTEND Family Medicine | DX: E78.5 Hyperlipidemia, unspecified (principal); E11.9 Type 2 diabetes mellitus without complications; E53.8 Deficiency of other specified B group vitamins; N20.0 Calculus of kidney; Z53.8 Procedure and treatment not carried out for other reasons ==

== ENCOUNTER → 2023-06-17 | Outpatient (CLI) | payer MEDICARE, MEDICAID ==
[2023-06-17 18:11] LABS: BASO # 0.1 10^3/uL (0.0-0.2); BASO % 0.8 % (0.0-1.0); EOS # 0.3 10^3/uL (0.0-0.5); EOS % 2.7 % (0.0-3.0); HEMATOCRIT 47.2 % (42.0-52.0); HEMOGLOBIN 14.3 g/dl (13.5-17.5); LYMPH # 3.2 10^3/uL (1.5-5.0); LYMPH % 25.9 % (24.0-44.0); MEAN CORPUSCULAR HEMOGLOBIN 24.6 pg (27.0-33.0); MEAN CORPUSCULAR HGB CONC 30.3 g/dl (32.0-36.5); MEAN CORPUSCULAR VOLUME 81.1 fl (80.0-96.0); MONO # 0.7 10^3/uL (0.0-0.8); NEUTROPHILS # 7.8 10^3/uL (1.5-8.5); NEUTROPHILS % 63.7 % (36.0-66.0); PLATELET COUNT, AUTOMATED 325 10^3/uL (150-450); RED BLOOD COUNT 5.82 10^6/uL (4.30-6.10); WHITE BLOOD COUNT 12.2 10^3/uL (4.0-10.0)
[2023-06-17 18:19] LABS: HEMOGLOBIN A1c 8.4 % (4.0-6.0)
[2023-06-17 18:21] LABS: FERRITIN 29.4 NG/ML (10.5-307.3); URIC ACID 4.7 MG/DL (3.7-9.2)
[2023-06-17 18:22] LABS: THYROID STIMULATING HORMONE 2.343 uIU/ML (0.55-4.78)
[2023-06-17 18:23] LABS: FREE T4 0.98 NG/DL (0.89-1.76)
[2023-06-17 18:24] LABS: VITAMIN B12 LEVEL 799 PG/ML (211-911)
[2023-06-17 18:25] LABS: ALBUMIN 3.5 G/DL (3.2-5.2); ALKALINE PHOSPHATASE 112 U/L (46-116); ALT/SGPT 29 U/L (7.0-40); AST/SGOT 14 U/L (<34); BILIRUBIN,TOTAL 0.3 MG/DL (0.3-1.2); BLOOD UREA NITROGEN 17 MG/DL (9-23); CALCIUM LEVEL 9.4 MG/DL (8.5-10.1); CARBON DIOXIDE LEVEL 31 MMOL/L (20-31); CHLORIDE LEVEL 103 MMOL/L (98-107); CHOLESTEROL LEVEL 217 MG/DL (<200); CHOLESTEROL RISK RATIO 6.76 (<5); CREATININE FOR GFR 1.02 MG/DL (0.70-1.30); GLOMERULAR FILTRATION RATE > 60.0 (>60); GLUCOSE, FASTING 166 MG/DL (60-100); HDL CHOLESTEROL 32.1 MG/DL (>40); NON-HDL-C 184.9 MG/DL; POTASSIUM SERUM 4.6 MMOL/L (3.5-5.1); SODIUM LEVEL 143 MMOL/L (136-145); TOTAL PROTEIN 7.2 G/DL (5.7-8.2); TRIGLYCERIDES LEVEL 445 MG/DL (<150)
== END ==
LOC: M PLALAB 15:35
PROVIDERS: ATTEND Family Medicine
DX: E78.5 Hyperlipidemia, unspecified (principal); E11.9 Type 2 diabetes mellitus without complications; E53.8 Deficiency of other specified B group vitamins; N20.0 Calculus of kidney

== ENCOUNTER → 2023-10-13 | Outpatient (CLI) | payer MEDICARE, MEDICAID ==
[2023-10-13 14:41] LABS: BASO # 0.1 10^3/uL (0.0-0.2); BASO % 0.4 % (0.0-1.0); EOS # 0.3 10^3/uL (0.0-0.5); EOS % 2.7 % (0.0-3.0); HEMATOCRIT 47.7 % (42.0-52.0); HEMOGLOBIN 14.4 g/dl (13.5-17.5); LYMPH # 2.8 10^3/uL (1.5-5.0); LYMPH % 23.1 % (24.0-44.0); MEAN CORPUSCULAR HEMOGLOBIN 24.3 pg (27.0-33.0); MEAN CORPUSCULAR HGB CONC 30.2 g/dl (32.0-36.5); MEAN CORPUSCULAR VOLUME 80.4 fl (80.0-96.0); MONO # 0.8 10^3/uL (0.0-0.8); MONO % 6.2 % (2.0-8.0); NEUTROPHILS # 8.1 10^3/uL (1.5-8.5); NEUTROPHILS % 66.4 % (36.0-66.0); PLATELET COUNT, AUTOMATED 276 10^3/uL (150-450); RED BLOOD COUNT 5.93 10^6/uL (4.30-6.10); WHITE BLOOD COUNT 12.2 10^3/uL (4.0-10.0)
[2023-10-13 14:50] LABS: ALBUMIN 3.5 G/DL (3.2-5.2); ALKALINE PHOSPHATASE 105 U/L (46-116); ALT/SGPT 26 U/L (7.0-40); AST/SGOT 14 U/L (<34); BILIRUBIN,TOTAL 0.4 MG/DL (0.3-1.2); BLOOD UREA NITROGEN 15 MG/DL (9-23); CALCIUM LEVEL 8.4 MG/DL (8.5-10.1); CARBON DIOXIDE LEVEL 31 MMOL/L (20-31); CHLORIDE LEVEL 104 MMOL/L (98-107); CHOLESTEROL LEVEL 122 MG/DL (<200); CHOLESTEROL RISK RATIO 4.22 (<5); CREATININE FOR GFR 0.79 MG/DL (0.70-1.30); FERRITIN 23.6 NG/ML (10.5-307.3); GLOMERULAR FILTRATION RATE > 60.0 (>60); GLUCOSE, FASTING 94 MG/DL (60-100); HDL CHOLESTEROL 28.9 MG/DL (>40); LDL CHOLESTEROL 58.9 MG/DL (<100); NON-HDL-C 93.1 MG/DL; POTASSIUM SERUM 3.9 MMOL/L (3.5-5.1); SODIUM LEVEL 140 MMOL/L (136-145); TOTAL PROTEIN 6.8 G/DL (5.7-8.2); TRIGLYCERIDES LEVEL 171 MG/DL (<150)
[2023-10-13 14:52] LABS: TOTAL 25(OH) VITAMIN D 36.5 NG/ML (20.0-100.0)
== END ==
LOC: M PLALAB 09:14
PROVIDERS: ATTEND Family Medicine
DX: E55.9 Vitamin D deficiency, unspecified (principal); E78.5 Hyperlipidemia, unspecified; D50.9 Iron deficiency anemia, unspecified

== ENCOUNTER → 2024-04-01 | Outpatient (CLI) | payer MEDICARE, MEDICAID ==
[2024-04-01 12:31] LABS: INR 1.05; PARTIAL THROMBOPLASTIN TIME 30.3 SECONDS (24.8-34.2); PROTHROMBIN TIME 13.4 SECONDS (12.5-14.5)
[2024-04-01 13:22] LABS: BASO # 0.1 10^3/uL (0.0-0.2); BASO % 0.7 % (0.0-1.0); EOS # 0.4 10^3/uL (0.0-0.5); EOS % 3.6 % (0.0-3.0); HEMATOCRIT 46.8 % (42.0-52.0); HEMOGLOBIN 14.2 g/dl (13.5-17.5); LYMPH # 2.4 10^3/uL (1.5-5.0); MEAN CORPUSCULAR HEMOGLOBIN 24.4 pg (27.0-33.0); MEAN CORPUSCULAR HGB CONC 30.3 g/dl (32.0-36.5); MEAN CORPUSCULAR VOLUME 80.6 fl (80.0-96.0); MONO # 0.6 10^3/uL (0.0-0.8); MONO % 6.3 % (2.0-8.0); NEUTROPHILS # 6.4 10^3/uL (1.5-8.5); NEUTROPHILS % 64.4 % (36.0-66.0); PLATELET COUNT, AUTOMATED 252 10^3/uL (150-450); RED BLOOD COUNT 5.81 10^6/uL (4.30-6.10)
[2024-04-01 13:51] LABS: FERRITIN 18.6 NG/ML (10.5-307.3)
[2024-04-01 13:54] LABS: HEMOGLOBIN A1c 7.5 % (4.0-6.0)
[2024-04-03 01:56] LABS: TISSUE TRANSGLUTAMINASE IgA < 1.0 U/mL (<15.0)
[2024-04-08 15:18] LABS: SOLUBLE TRANSFERRIN RECEPTOR 1.78 mg/L (0.76-1.76)
[2024-04-08 16:33] LABS: ALPHA 2-MACROGLOBULINS,QN 179 mg/dL (106-279); ALT (SGPT) P5P 15 U/L (9-46); APOLIPOPROTEIN A-1 116 mg/dL (94-176); BILIRUBIN, TOTAL 0.2 mg/dL (0.2-1.2); FIBROSIS SCORE 0.08; FIBROSIS STAGE NO FIBROSIS (F0); GGT 24 U/L (3-95); HAPTOGLOBIN 287 mg/dL (43-212); NECROINFLAM ACT GRADE NO ACTIVITY (A0); NECROINFLAM ACT SCORE 0.04
== END ==
LOC: M PLALAB 11:29
PROVIDERS: ATTEND Family Medicine
DX: D50.9 Iron deficiency anemia, unspecified (principal); K74.00 Hepatic fibrosis, unspecified; E11.9 Type 2 diabetes mellitus without complications
CPT/HCPCS: 36415; 81596; 82105; 82728; 83036; 84238; 85025; 85610; 85730; 86364; G0463

== ENCOUNTER → 2024-04-01 | Outpatient (REF) | payer MEDICARE, MEDICAID | LOC: M SFHCPLAZ 11:14 | PROVIDERS: ATTEND Family Medicine | DX: K74.00 Hepatic fibrosis, unspecified (principal); E11.9 Type 2 diabetes mellitus without complications; D50.9 Iron deficiency anemia, unspecified ==

== ENCOUNTER → 2024-04-20 | Outpatient (REF) | payer MEDICARE, MEDICAID | LOC: M SFHCADAM 09:32 | DX: E11.9 Type 2 diabetes mellitus without complications (principal); Z53.9 Procedure and treatment not carried out, unspecified reason ==

== ENCOUNTER → 2024-07-05 | Outpatient (CLI) | payer MEDICARE, MEDICAID ==
[2024-07-05 13:29] LABS: ALBUMIN 3.3 G/DL (3.2-5.2); ALKALINE PHOSPHATASE 103 U/L (40-129); ALT/SGPT 17 U/L (7.0-40); AST/SGOT < 8 U/L (<34); BILIRUBIN,TOTAL 0.3 MG/DL (0.3-1.2); BLOOD UREA NITROGEN 14 MG/DL (9-23); CALCIUM LEVEL 8.8 MG/DL (8.5-10.1); CARBON DIOXIDE LEVEL 29 MMOL/L (20-31); CHLORIDE LEVEL 107 MMOL/L (98-107); CREATININE FOR GFR 0.81 MG/DL (0.70-1.30); GLOMERULAR FILTRATION RATE > 60.0 (>60); GLUCOSE, FASTING 97 MG/DL (60-100); SODIUM LEVEL 143 MMOL/L (136-145); TOTAL PROTEIN 6.7 G/DL (5.7-8.2)
[2024-07-05 13:41] LABS: HEMOGLOBIN A1c 6.4 % (4.0-6.0)
== END ==
LOC: M PLALAB 11:25
PROVIDERS: ATTEND Physician Assistant
DX: E11.9 Type 2 diabetes mellitus without complications (principal)

== ENCOUNTER → 2024-12-21 | Outpatient (CLI) | payer MEDICARE, MEDICAID ==
[~2024-12-21] MED LIST changes: -FLOM0.4C39 PO; +TAMS-18 PO
[2024-12-21 13:29] LABS: BASO # 0.1 10^3/uL (0.0-0.2); BASO % 0.5 % (0.0-1.0); EOS # 0.3 10^3/uL (0.0-0.5); EOS % 1.9 % (0.0-3.0); HEMATOCRIT 46.3 % (42.0-52.0); HEMOGLOBIN 14.1 g/dl (13.5-17.5); LYMPH # 2.8 10^3/uL (1.5-5.0); LYMPH % 21.1 % (24.0-44.0); MEAN CORPUSCULAR HEMOGLOBIN 24.8 pg (27.0-33.0); MEAN CORPUSCULAR HGB CONC 30.5 g/dl (32.0-36.5); MEAN CORPUSCULAR VOLUME 81.5 fl (80.0-96.0); MONO # 0.8 10^3/uL (0.0-0.8); MONO % 5.8 % (2.0-8.0); NEUTROPHILS # 9.3 10^3/uL (1.5-8.5); NEUTROPHILS % 70.2 % (36.0-66.0); PLATELET COUNT, AUTOMATED 266 10^3/uL (150-450); RED BLOOD COUNT 5.68 10^6/uL (4.30-6.10); WHITE BLOOD COUNT 13.2 10^3/uL (4.0-10.0)
[2024-12-21 13:34] LABS: ALBUMIN 3.5 G/DL (3.2-5.2); ALKALINE PHOSPHATASE 96 U/L (40-129); ALT/SGPT 19 U/L (7.0-40); AST/SGOT 11 U/L (<34); BILIRUBIN,TOTAL 0.4 MG/DL (0.3-1.2); BLOOD UREA NITROGEN 22 MG/DL (9-23); CALCIUM LEVEL 9.3 MG/DL (8.5-10.1); CARBON DIOXIDE LEVEL 32 MMOL/L (20-31); CHLORIDE LEVEL 103 MMOL/L (98-107); CHOLESTEROL LEVEL 129 MG/DL (<200); CHOLESTEROL RISK RATIO 3.85 (<5); CREATININE FOR GFR 0.96 MG/DL (0.70-1.30); GLOMERULAR FILTRATION RATE > 90.0 (>60); GLUCOSE, FASTING 66 MG/DL (60-100); HDL CHOLESTEROL 33.5 MG/DL (>40); LDL CHOLESTEROL 78.3 MG/DL (<100); MAGNESIUM LEVEL 1.6 MG/DL (1.8-2.4); NON-HDL-C 95.5 MG/DL; POTASSIUM SERUM 3.9 MMOL/L (3.5-5.1); SODIUM LEVEL 144 MMOL/L (136-145); TOTAL PROTEIN 6.9 G/DL (5.7-8.2); TRIGLYCERIDES LEVEL 86 MG/DL (<150)
[2024-12-21 13:36] LABS: FERRITIN 28.7 NG/ML (10.5-307.3)
[2024-12-21 14:02] LABS: CREATININE, URINE 61.2 MG/DL
[2024-12-21 14:03] LABS: MAU/CREAT RATIO 269.6 MCG/MG (0.0-30.0)
[2024-12-21 14:50] LABS: HEMOGLOBIN A1c 6.5 % (4.0-6.0)
== END ==
LOC: M PLALAB 09:58
PROVIDERS: ATTEND Family Medicine
DX: D60.9 Acquired pure red cell aplasia, unspecified (principal); D50.9 Iron deficiency anemia, unspecified; E78.00 Pure hypercholesterolemia, unspecified